=== PATIENT | male | born 1955 | race Caucasian/White ===

== ENCOUNTER 2018-11-11 12:19 | Emergency (ER) | payer MEDICAID ==
[~2018-11-11] VITALS: Ht 175.3 cm; Wt 81.8 kg
[2018-11-11 12:36] VITALS: BP 170/95
--- NOTE | 2018-11-11 14:28 | NUR ---
Discharge instructions discussed with patient, patient provided with taxi voucher to eye doctor's office for immediate visit.
== END 2018-11-11 14:31 | disposition home or self-care (01) ==
LOC: EDBD 12:19 → ED 14:15
DX: H54.62 Unqualified visual loss, left eye, normal vision right eye (principal)
CPT/HCPCS: 99282

== ENCOUNTER 2018-11-12 11:09 | Emergency (ER) | payer MEDICAID ==
[~2018-11-12] VITALS: Ht 175.3 cm; Wt 81.0 kg
[2018-11-12 11:16] VITALS: BP 156/80
--- NOTE | 2018-11-12 13:00 | NUR ---
LALITA BY JENY CHERRY
--- NOTE | 2018-11-12 13:30 | NUR ---
"DR. VANCE THINKS I HAVE SCABIES IN MY LEFT EYE. HE WANTED ME TO COME HERE BECAUSE HE DIDN'T WANT ME IN HIS OFFICE BECAUSE OF IT. AND I THINK I MIGHT HAVE LICE." PATIENT REPORT "I HAVE LEFT EYE PAIN FOR AWHILE, I KNOW I HAVE A DETACHED RETINA. PERRLA AT 4 WITH SLUGGISH REPONSE. SEE VISUAL ACUITY
--- NOTE | 2018-11-12 13:43 | NUR ---
SW TO BEDSIDE PROVIDING PATIENT W/ COMPREHENSIVE PLAN FOR WORK UP OF EYE PROBLEM. PATIENT SUCCESSFULLY TAUGHT BACK
--- NOTE | 2018-11-12 13:48 | NUR ---
VISUAL ACUITY DETAILS: UNABLE TO COUNT FINGERS TO LEFT EYE (NON-DETERMINABLE VISUAL ACUITY)
== END 2018-11-12 13:51 | disposition home or self-care (01) ==
LOC: ED 12:23
DX: H53.132 Sudden visual loss, left eye (principal); H33.22 Serous retinal detachment, left eye
CPT/HCPCS: 99282; 99283

== ENCOUNTER 2019-09-30 09:06 | Emergency (ER) | payer MEDICARE, MEDICAID ==
[~2019-09-30] VITALS: Ht 175.3 cm; Wt 78.0 kg
--- NOTE | 2019-09-30 09:26 | NUR ---
RELIEF CHARGE NURSE: PT AMBULATORY TO ROOM FROM LOBBY
--- NOTE | 2019-09-30 10:19 | NUR ---
DISCHARGE INSTRUCTIONS GIVEN TO PATIENT WITH PRESCRIPTIONS. PT VERBALIZES UNDERSTANDING OF ALL INSTRUCTIONS AND FOLLOW UP. PT AMBULATED OUT OF ED PER PEDIS.
[2019-09-30 10:21] VITALS: BP 126/82
== END 2019-09-30 10:23 | disposition home or self-care (01) ==
LOC: ED 09:57
DX: B35.3 Tinea pedis (principal); B86 Scabies; F17.200 Nicotine dependence, unspecified, uncomplicated
CPT/HCPCS: 99283